=== PATIENT | male | born 1955 | race Caucasian/White ===

== ENCOUNTER 2018-11-19 21:44 | Emergency (ER) | payer OTHER ==
--- NOTE | 2018-11-19 21:59 | ER Report ---
History and Physical Time Seen By : 21:56 Hx. of Stated Complaint: PT REPORTS URINARY STENT TAKEN OUT YESTERDAY. PT HAS BEEN VOMITING AND HAD DIARRHEA TODAY WITH CHILLS. HPI/ROS CHIEF COMPLAINT: vomiting/diarrhea and chills HISTORY OF PRESENT ILLNESS: This is a 63 year old male. He is having pain in the left abdomen and having vomiting and diarrhea. Started in the evening. He had a urinary stent removed from the left ureter yesterday, put in to help with 11mm kidney stone. Was on two doses of Cephalexin yesterday. Was feeling fine so they came up to the area to go camping. They are from the [facility]. Started to feel poorly, having chills, then feeling hot. Ongoing vomiting tonight. No chest pain. Mild shortness of breath only when vomiting. No back pain. Allergies: Coded Allergies: sulfamethoxazole (Verified Allergy, Intermediate, "HIVES", 11/19/18) trimethoprim (Verified Allergy, Intermediate, "HIVES", 11/19/18) Home Meds Active Scripts Ondansetron 4 Mg Odt (ONDANSETRON 4 MG ODT) 4 Mg Tab.rapdis, 4 MG PO Q6H PRN for NAUSEA/VOMITING, #20 TAB 0 Refills Prov:CRISPIN SUE MD 11/20/18 Hydrocodone Bit/Acetaminophen (HYDROCODON-ACETAMINOPHEN 5-325) 1 Each Tablet, 1 EACH PO Q4H PRN for PAIN, #12 TAB 0 Refills Prov:CRISPIN SUE MD 11/20/18 Cefdinir 300 Mg Cap (OMNICEF 300 MG CAP (OR EQUIV)) 300 Mg Cap, 300 MG PO BID for 7 Days, #14 CAP 0 Refills Prov:CRISPIN SUE MD 11/20/18 Reviewed Nurses Notes: Yes Constitutional Vital Sign - Last 24 Hours 11/19/18 11/19/18 11/19/18 11/19/18 21:49 21:50 21:59 22:00 Temp 98.7 Pulse 87 84 Resp 24 B/P (MAP) 109/86 (94) 109/86 106/74 (85) Pulse Ox 97 94 O2 Delivery Room Air 11/19/18 11/19/18 11/19/18 11/19/18 22:14 22:29 22:30 22:44 Pulse 89 91 B/P (MAP) 115/77 (90) Pulse Ox 84 94 85 11/19/18 11/19/18 11/19/18 11/19/18 22:48 22:49 23:00 23:04 Pulse 88 99 B/P (MAP) 106/68 (81) Pulse Ox 96 95 O2 Flow Rate 2.0 11/19/18 11/19/18 11/19/18 11/19/18 23:19 23:24 23:39 23:44 Pulse 91 87 88 85 Pulse Ox 95 96 95 96 11/19/18 11/20/18 11/20/18 11/20/18 23:59 00:14 00:29 00:34 Pulse 69 85 83 85 Pulse Ox 90 94 95 95 11/20/18 11/20/18 11/20/18 00:39 00:54 01:09 Pulse 84 79 Pulse Ox 95 91 91 Intake and Output 11/19/18 11/19/18 11/20/18 15:02 23:02 07:02 Intake Total 1100 ml 1000 ml Balance 1100 ml 1000 ml Physical Exam General Appearance: The patient is alert. No acute distress. Non-toxic in appearance. Eyes: Pupils are equal, round. No pallor, injection or icterus. ENT: Mucous membranes are moist. Normal oral mucosa. Posterior oropharynx is normal. Neck: Supple and non tender. Respiratory: Lungs are clear to auscultation. Cardiovascular: Regular rate and rhythm. No murmurs, gallops or rubs. Normal capillary refill. Gastrointestinal: Abdomen is soft, some tenderness on left abdomen lower/suprapubic. Nondistended. No CVA tenderness. Guarding, but no rebound. Normal active bowel sounds. Neurological: Alert and oriented x3. No focal neurologic deficits Skin: Warm and dry. No rashes. Musculoskeletal: Extremities are nontender. No tenderness in palpation of the cervical, thoracic and lumbar spine, a little bit of pain into the left lower back area paraspinous. DIFFERENTIAL DIAGNOSIS: After history and physical exam, differential diagnosis was considered for patient with left-sided abdomen and pain in the low back area concerning with his recent history of ureteral stent removal for urinary tract infection or other kidney problem. Medical Decision Making Data Points Result Diagram: 11/19/182 11/19/18 2212 Laboratory Hematology Test 11/19/18 22:12 White Blood Count 23.8 k/uL (4.5-11.0) H Red Blood Count 4.70 M/uL (4.00-5.60) Hemoglobin 14.5 g/dL (14.0-18.0) Hematocrit 41.6 % (42.0-52.0) L Mean Corpuscular Volume 88.5 fL (80.0-96.0) Mean Corpuscular Hemoglobin 30.9 pg (26.0-33.0) Mean Corpuscular Hemoglobin Concent 34.9 g/dL (32.0-36.0) Red Cell Distribution Width 13.0 % (11.5-14.5) Platelet Count 199 K/uL (150-450) Mean Platelet Volume 8.3 fL (7.2-11.1) Neutrophils (%) (Auto) 91.1 % (39.4-72.5) H Lymphocytes (%) (Auto) 2.7 % (17.6-49.6) L Monocytes (%) (Auto) 6.1 % (4.1-12.4) Eosinophils (%) (Auto) 0.0 % (0.4-6.7) L Basophils (%) (Auto) 0.1 % (0.3-1.4) L Nucleated RBC Relative Count (auto) 0.0 /100WBC Neutrophils # (Auto) 21.6 K/uL (2.0-7.4) H Lymphocytes # (Auto) 0.7 K/uL (1.3-3.6) L Monocytes # (Auto) 1.4 K/uL (0.3-1.0) H Eosinophils # (Auto) 0.0 K/uL (0.0-0.5) Basophils # (Auto) 0.0 K/uL (0.0-0.1) Nucleated RBC Absolute Count (auto) 0.00 K/uL Chemistry Test 11/19/18 22:12 Sodium Level 135 mmol/L (137-145) Potassium Level 3.4 mmol/L (3.5-5.0) Chloride Level 101 mmol/L (98-107) Carbon Dioxide Level 17 mmol/L (22-30) Blood Urea Nitrogen 14 mg/dl (9-21) Creatinine 1.20 mg/dl (0.66-1.25) Glomerular Filtration Rate Calc > 60.0 Random Glucose 95 mg/dl (75-110) Calcium Level 9.4 mg/dl (8.4-10.2) Total Bilirubin 5.3 mg/dl (0.2-1.3) Aspartate Amino Transf (AST/SGOT) 26 U/L (0-35) Alanine Aminotransferase (ALT/SGPT) 35 U/L (0-56) Alkaline Phosphatase 58 U/L (0-126) Total Protein 6.6 g/dl (6.3-8.2) Albumin 4.1 g/dl (3.5-5.0) Urinalysis Test 11/19/18 21:50 Urine Color Jaqueline Urine Clarity Clear Urine pH 9.0 pH (4.8-9.5) Urine Specific Butler 1.011 Urine Protein Negative mg/dL (NEGATIVE) Urine Glucose (UA) Negative mg/dL (NEGATIVE) Urine Ketones 20 mg/dL (NEGATIVE) Urine Blood Negative (NEGATIVE) Urine Nitrite Positive (NEGATIVE) Urine Bilirubin Negative (NEGATIVE) Urine Urobilinogen 4.0 mg/dL (0.2-1.9) Urine Leukocyte Esterase Negative (NEGATIVE) Urine RBC 1 /HPF (0-2/HPF) Urine WBC 20 /HPF (0-5/HPF) Urine Squamous Epithelial Cells None /LPF (</=FEW) Urine Bacteria Negative /HPF (NONE-FEW) Urine Mucus None /HPF (NONE-FEW) EKG/Imaging Imaging EXAMINATION: Renal ultrasound 11/19/2018 10:31 PM HISTORY: fevers, renal stent removed yesterday. COMPARISON STUDIES: None available FINDINGS: Kidneys: Right kidney- 11.5 x 4.8 x 5.5 cm, normal parenchymal thickness and echogenicity. Upper pole cyst measuring 1.4 x 1.1 x 1.0 cm. Left kidney- 12.2 x 5.2 x 5.3 cm, normal parenchymal thickness and echogenicity. Exophytic upper pole cyst 0.8 x 0.8 x 0.7 cm. Uniform and symmetric blood flow in each kidney by Doppler ultrasound. Hydronephrosis: Mild hydronephrosis versus prominent extrarenal pelvis on the left. Nonsignificant on the right. Bladder: Prominent prostate against bladder floor measures 5.4 x 5.6 x 6.0 cm. 48 cc in the bladder post void. Both ureteral jets are visualized. Abdominal aorta and IVC: Patent by Doppler ultrasound IMPRESSION: 1. Mild left hydronephrosis versus prominent extrarenal pelvis. 2. Benign-appearing small bilateral renal cortical cysts. 3. Prominent prostate with 48 cc post void residual in the bladder. Report Dictated By: Chadwick Felix MD at 11/20/2018 12:36 AM ED Course/Re-evaluation Clinical Indication for ER IV: Hydration, IV Access ED Course After initial evaluation, IV was placed and patient was given normal saline, or fainting, Tylenol, and Zofran. He felt much better after this. A second liter of fluid was given. Labs unremarkable other than white count being elevated and changes in the urine consistent with urinary tract infection. BUN and creatinine electrolytes were normal. CT scan was not available tonight so we elected to do a renal ultrasound which showed a little bit of hydronephrosis but otherwise no major problems noted. Normal BUN and creatinine with elevated white count and changes consistent with infection, we will begin treatment for urinary tract infection. Chose Cefdinir 300mg twice a day. Urine culture pending. Recommended follow-up with his urologist this week. Decision to Disposition Date: Nov 20, 2018 Decision to Disposition Time: 01:04 Depart Departure Latest Vital Signs Vital Signs Date Time Temp Pulse Resp B/P (MAP) Pulse Ox O2 Delivery O2 Flow Rate FiO2 11/20/18 01:09 79 91 11/19/18 23:00 106/68 (81) 11/19/18 22:48 2.0 11/19/18 21:50 98.7 24 Room Air Impression: Primary Impression: Urinary tract infection Condition: Improved Disposition: HOME OR SELF-CARE New Scripts Ondansetron 4 Mg Odt (ONDANSETRON 4 MG ODT) 4 Mg Tab.rapdis 4 MG PO Q6H PRN for NAUSEA/VOMITING, #20 TAB 0 Refills Prov: CRISPIN SUE MD 11/20/18 Hydrocodone Bit/Acetaminophen (HYDROCODON-ACETAMINOPHEN 5-325) 1 Each Tablet 1 EACH PO Q4H PRN for PAIN, #12 TAB 0 Refills Prov: CRISPIN SUE MD 11/20/18 Cefdinir 300 Mg Cap (OMNICEF 300 MG CAP (OR EQUIV)) 300 Mg Cap 300 MG PO BID for 7 Days, #14 CAP 0 Refills Prov: CRISPIN SUE MD 11/20/18 Patient Instructions: Urinary Tract Infection in Men (ED) Additional Instructions: Take the antibiotic Cefdinir 300mg twice a day for 7 days. Follow-up with your doctor this week. For pain, take Lortab 5/325, one every 4 hours as needed for pain. For nausea, use Zofran 4mg, one every 6 hours as needed for nausea. Problem Qualifiers Primary Impression: Urinary tract infection Urinary tract infection type: acute cystitis Hematuria presence: without hematuria Qualified Codes: N30.00 - Acute cystitis without hematuria CRISPIN SUE MD Nov 19, 2018 21:59
[2018-11-19] MEDS ORDERED: NS(*) 0.9% 1000 ML BAG 1,000 ML IV ONE ×2 (22:25→23:25)
[2018-11-19] MEDS ORDERED: MORPHINE 4 MG/ML SDV IVP ONE (22:35)
[2018-11-19] MEDS ORDERED: ONDANSETRON 4 MG/2 ML VIAL IVP ONE (22:35)
[2018-11-19] MEDS ORDERED: ACETAMINOPHEN(*)1000 MG/100 ML 100 ML IVPB ONE (22:35)
[2018-11-19 23:00] VITALS: BP 106/68
[2018-11-19 23:17] LABS: PLATELET COUNT, AUTOMATED 199 K/uL (150-450)
--- NOTE | 2018-11-20 00:47 | RADIOLOGY IMAGING REPORT ---
FACILITY: [facility] PATIENT NAME: Juancho Ladd : 1955 MR: [id number] V: [id number] EXAM DATE: ORDERING PHYSICIAN: CRISPIN SUE TECHNOLOGIST: [place] [facility] [place]ancho L[place] : 1955 Visit/Account:[id number] Date of Sevice: 11/19/2018 EXAMINATION: Renal ultrasound 11/19/2018 10:31 PM HISTORY: fevers, renal stent removed yesterday. COMPARISON STUDIES: None available FINDINGS: Kidneys: Right kidney- 11.5 x 4.8 x 5.5 cm, normal parenchymal thickness and echogenicity. Upper pole cyst tom suring 1.4 x 1.1 x 1.0 cm. Left kidney- 12.2 x 5.2 x 5.3 cm, normal parenchymal thickness and echogenicity. Exophytic upper pole cyst 0.8 x 0.8 x 0.7 cm. Uniform and symmetric blood flow in each kidney by Doppler ultrasound. Hydronephrosis: Mild hydronephrosis versus prominent extrarenal pelvis on the left. Nonsignificant on the right. Bladder: Prominent prostate against bladder floor measures 5.4 x 5.6 x 6.0 cm. 48 cc in the bladder p ost void. Both ureteral jets are visualized. Abdominal aorta and IVC: Patent by Doppler ultrasound IMPRESSION: 1. Mild left hydronephrosis versus prominent extrarenal pelvis. 2. Benign-appearing small bilateral renal cortical cysts. 3. Prominent prostate with 48 cc post void residual in the bladder. Report Dictated By: Chadwick Felix MD at 11/20/2018 12:36 AM Report E-Signed By: Chadwick Felix MD at 11/20/2018 12:40 AM WSN:[id number]
[2018-11-20] MEDS ORDERED: CEFDINIR 300 MG CAP PO ONE (01:05)
[2018-11-20] MEDS ORDERED: ACET/HYDROC 5/325MG TH ER ONLY 2 TAB/BOTTLE PO ONE (01:05)
[2018-11-20] MEDS ORDERED: ONDANSETRON 4 MG ODT TH SL ONE (01:05)
[2018-11-20] MEDS ORDERED: LOR5/325 PO (01:08)
[2018-11-20] MEDS ORDERED: CEF300 PO (01:08)
[2018-11-20] MEDS ORDERED: ONDA4TAB9 PO (01:08)
== END 2018-11-20 01:34 | disposition home or self-care (01) ==
LOC: ER 22:23
DX: N30.00 Acute cystitis without hematuria (principal)
CPT/HCPCS: 76705; 81001; 85025; 87077; 87088; 87186; 96361; 96365; 96375; 99284; J0131; J2270; J2405; J7030; S0119; 82040; 82247; 82310; 82374; 82435; 82565; 82947; 84075; 84132; 84155; 84295; 84450; 84460; 84520